=== PATIENT | female | born 1990 | race American Indian/Alaskan Native ===

== ENCOUNTER 2019-03-31 14:47 | Emergency (ER) | payer MEDICAID ==
--- NOTE | 2019-03-31 14:52 | ED PDOC ---
Arrival/HPI - General Time Seen by Provider: 03/31/19 14:50 Historian: Patient - History of Present Illness Narrative History of Present Illness (Text): 03/31/19 14:50 29 y/o female, pmh including bronchitis, nkda, c/o coughing and chest pain x 2 days. Pt. stated that she has been coughing x 2 weeks, associated with pain upon deep breathing for the past 2 days, been having bilateral calf pain as well, no palpitation, no night sweat, no dizziness, no change in vision, no diarrhea, no other medical or psychological complaints. Past Medical History - Provider Review Nursing Documentation Reviewed: Yes Family/Social History - Physician Review Nursing Documentation Reviewed: Yes Family/Social History: Unknown Family HX Allergies/Home Meds Allergies/Adverse Reactions: Allergies No Known Allergies Allergy (Verified 03/31/19 15:12) Review of Systems - Review of Systems Constitutional: absent: Fatigue, Fevers ENT: absent: Hearing Changes Respiratory: Cough. absent: SOB, Sputum, Wheezing Cardiovascular: absent: Chest Pain Gastrointestinal: absent: Abdominal Pain, Diarrhea, Nausea, Vomiting Genitourinary Female: absent: Dysuria Musculoskeletal: Myalgias. absent: Arthralgias, Back Pain, Neck Pain Skin: absent: Rash, Pruritis Neurological: absent: Headache, Dizziness Hemo/Lymphatic: absent: Adenopathy, Easy Bleeding Psychiatric: absent: Anxiety, Depression, Suicidal Ideation Physical Exam Vital Signs Reviewed: Yes Temperature: Afebrile Blood Pressure: Normal Pulse: Regular Respiratory Rate: Normal Appearance: Positive for: Well-Appearing, Non-Toxic, Comfortable Pain Distress: Mild Mental Status: Positive for: Alert and Oriented X 3 - Systems Exam Head: Present: Atraumatic, Normocephalic Pupils: Present: PERRL Extroacular Muscles: Present: EOMI Conjunctiva: Present: Normal Ears: Present: NORMAL TM, Normal Canal. No: Erythema Mouth: Present: Moist Mucous Membranes Pharnyx: No: ERYTHEMA, EXUDATE, TONSILS ENLARGED Nose (External): Present: Atraumatic. No: Abrasion, Contusion, Laceration Nose (Internal): Present: Normal Inspection, No Active Bleeding. No: Rhinorrhea, Septal Hematoma, Epistaxis Neck: Present: Normal Range of Motion, Trachea Midline. No: Meningeal Signs, MIDLINE TENDERNESS, Paraspinal Tenderness, Lymphadenopathy Respiratory/Chest: Present: Decreased Breath Sounds. No: Respiratory Distress, Accessory Muscle Use, Wheezes, Rales, Retracting, Rhonchi, Tachypneic, Tender to Palpation Cardiovascular: Present: Regular Rate and Rhythm, Normal S1, S2. No: Murmurs Abdomen: No: Tenderness, Distention, Peritoneal Signs Back: Present: Normal Inspection. No: CVA Tenderness, Midline Tenderness, Paraspinal Tenderness, Pain with Leg Raise, Decubitus Ulcer Upper Extremity: Present: Normal Inspection. No: Cyanosis, Edema Lower Extremity: Present: Normal Inspection, CALF TENDERNESS (lt. calf), NORMAL PULSES, Normal ROM, Neurovascularly Intact, Capillary Refill < 2 s. No: Edema, Mckenna's Sign, Tenderness, Swelling, Deformity Neurological: Present: GCS=15, CN II-XII Intact, Speech Normal, Motor Func Grossly Intact, Normal Cerebellar Funct, Gait Normal, Memory Normal Skin: Present: Warm, Dry, Normal Color. No: Rashes Psychiatric: Present: Alert, Oriented x 3, Normal Insight, Normal Concentration Medical Decision Making ED Course and Treatment: 03/31/19 15:13 -Labs -EKG -CXR -Bilateral LE Venuous doppler -IVF/toradol/duoneb -Observe and reassess 03/31/19 17:39 -Urine hcg is negative -EKG: NSR @ 81 BPM, no ST elevation or depression, no T wave inversion. -Chest xray: ER wet read: no active disease -Bilateral LE Venuous doppler: as per preliminary report, no acute DVT -Labs are non significant -Trop is negative -Dimer is negative -Trop after 24 hours is negative -Symptoms relief with the duoneb and now the lung is bilateral clear to auscultate with no wheezing/crackles/rhonchis, no retractions. -HEART score is low, PERC is negative -Pt. feels relief, request to be discharge home, request her albuterol MDI and nebulizer solution. -Discharge home with albuterol MDI and albuterol nebulizer solution, motrin, zithromax, prednisone, bed rest, follow up with your own pmd and conveyor console operator/communications administrator within 2 days, no gym or exercise until clear by the conveyor console operator and communications administrator, return to the ER for any new or worsening signs or symptoms. - RAD Interpretation Radiology Orders: -Chest xray: -Bilateral LE Venuous doppler: as per preliminary report, no acute DVT [employer] D[employer] Developer: Radiologist - PA / EDUCATION PROFESSIONAL / Resident Statement MD/ has reviewed & agrees with the documentation as recorded. Disposition/Present on Arrival - Present on Arrival Any Indicators Present on Arrival: No History of DVT/PE: No History of Uncontrolled Diabetes: No Urinary Catheter: No History of Decub. Ulcer: No - Disposition Have Diagnosis and Disposition been Completed?: Yes Diagnosis: Atypical chest pain, Bronchitis, Medication refill Disposition: HOME/ ROUTINE Disposition Time: 17:31 Patient Plan: Discharge Patient Problems: Current Active Problems Problem Status Onset Atypical chest pain Acute Bronchitis Acute Medication refill Acute Condition: IMPROVED Discharge Instructions (ExitCare): Chest Pain (ED) Additional Instructions: -Discharge home with albuterol MDI and albuterol nebulizer solution, motrin, zithromax, prednisone, bed rest, follow up with your own pmd and conveyor console operator/communications administrator within 2 days, no gym or exercise until clear by the conveyor console operator and communications administrator, return to the ER for any new or worsening signs or symptoms. Prescriptions: Albuterol HFA [Ventolin HFA 90 mcg/actuation (8 g)] 2 puff IH [id number] PRN #1 inhaler PRN Reason: Other Albuterol 0.083% [Albuterol 0.083% Inhal Goldie (2.5 mg/3 ml) UD] 2.5 mg IH QID PRN #30 vial PRN Reason: Other Azithromycin [Zithromax] 250 mg PO DAILY #6 tab Ibuprofen [Motrin] 600 mg PO QID PRN #30 tab PRN Reason: Other Prednisone 50 mg PO DAILY #4 tablet Referrals: Conchis Mon MD [Staff Provider] - Follow up with primary Osmel Pretty MD [Staff Provider] - Follow up with primary [facility] at [facility] [place] [Outside] - Follow up with primary Forms: WORK NOTE
[2019-03-31 15:00] VITALS: TEMP 99.3; O2SAT 99
[2019-03-31] MEDS ORDERED: Albuterol-Ipratrop 3 mg / 0.5 (3 ml) UD IH STA (15:15)
[2019-03-31] MEDS ORDERED: Sodium Chloride 0.9% 1,000 ML IV SCH (15:15)
[2019-03-31 16:27] LABS: URINE BILIRUBIN NEGATIVE (NEGATIVE); URINE BLOOD TRACE-LYSED (NEGATIVE); URINE GLUCOSE (UA) NEGATIVE (NEGATIVE); URINE LEUKOCYTE ESTERASE NEGATIVE Leu/uL (NEGATIVE); URINE PROTEIN NEGATIVE mg/dL (<30 mg/dL); URINE UROBILINOGEN 0.2 E.U./dL (<1 E.U./dL)
[2019-03-31 16:31] LABS: BASO # 0.06 K/mm3 (0.0-2.0); BASO % 0.6 % (0.0-3.0); EOS # 0.2 (0.0-0.7); EOS % 1.6 % (1.5-5.0); HEMOGLOBIN 12.3 g/dL (12.0-16.0); LYMPH % 20.7 % (22.0-35.0); MEAN CELL VOLUME 88.5 fl (80.0-105.0); MEAN CORPUSCULAR HEMOGLOBIN 28.4 pg (25.0-35.0); MEAN CORPUSCULAR HGB CONC 32.1 g/dl (31.0-37.0); MEAN PLATELET VOLUME 9.8 fl (7.0-11.0); MONO # 0.6 (0.1-0.6); MONO % 6.1 % (1.0-6.0); RBC 4.33 10^6/uL (3.5-6.1); RED CELL DISTRIBUTION WIDTH 12.7 % (11.5-14.5); WHITE BLOOD COUNT 9.4 10^3/uL (4.5-11.0)
[2019-03-31 16:32] LABS: URINE COLOR LIGHT YELLOW (YELLOW)
[2019-03-31 16:37] LABS: URINE APPEARANCE CLEAR (CLEAR)
[2019-03-31 16:38] LABS: ALB/GLOB RATIO 1.4 (1.1-1.8); ALBUMIN 4.1 g/dL (3.0-4.8); ALT/SGPT 20 U/L (7-56); AST/SGOT 26 U/L (14-36); BLOOD UREA NITROGEN 14 mg/dL (7-21); GFR NON-AFRICAN AMERICAN > 60
[2019-03-31 16:47] LABS: TROPONIN I < 0.01 ng/mL; URINE BACTERIA MOD /hpf; URINE RBC 0 - 2 /hpf (0-2)
[2019-03-31 16:50] LABS: B-TYPE NATRIURETIC PEPTIDE < 11.1 pg/mL (0-450)
[2019-03-31 16:56] VITALS: BP 127/72; PULSE 86; RESP 15
--- NOTE | 2019-03-31 17:43 | RAD ---
Date of service: 03/31/2019 HISTORY: chest pain COMPARISON: No prior. TECHNIQUE: Chest PA and lateral views FINDINGS: LUNGS: No active pulmonary disease. PLEURA: No significant pleural effusion identified. No pneumothorax apparent. CARDIOVASCULAR: No aortic atherosclerotic calcification present. Normal cardiac size. No pulmonary vascular congestion. OSSEOUS STRUCTURES: No significant abnormalities. VISUALIZED UPPER ABDOMEN: Normal. OTHER FINDINGS: None. IMPRESSION: No active disease.
--- NOTE | 2019-04-01 10:48 | CARD ---
APPROVED REPORT Date of service: 03/31/2019 EKG Measurement Heart [id number] <Conclusion> Normal sinus rhythm Normal ECG
--- NOTE | 2019-04-02 08:14 | US ---
HISTORY: Leg pain and swelling. Evaluate for DVT PHYSICIAN(S): Mk Pop MD. TECHNIQUE: Duplex sonography and color-flow Doppler with graded compression were used to evaluate the deep venous systems of both lower extremities. FINDINGS: The visualized deep venous systems of both lower extremities are sonographically normal and compressible. Normal wave forms and augmentation are seen. There is no sonographic evidence for deep venous thrombosis in the visualized segments of both lower extremities. IMPRESSION: No sonographic evidence for deep venous thrombosis in the visualized segments of both lower extremities.
== END 2019-03-31 17:53 | disposition home or self-care (01) ==
LOC: ED 14:47 → MERGE 14:47 → ED 17:53
DX: J40 Bronchitis, not specified as acute or chronic (principal); R07.89 Other chest pain; Z76.0 Encounter for issue of repeat prescription
CPT/HCPCS: 71046; 80053; 81001; 81025; 82550; 83735; 83880; 84484; 85025; 85378; 93005; 93970; 96374; 99283; J1885; J7030